=== PATIENT | male | born 1955 | race Caucasian/White ===

== ENCOUNTER 2018-03-27 18:33 | Emergency (ER) | payer OTHER ==
--- NOTE | 2018-03-27 19:47 | ED Physician Documentation ---
PD HPI LOWER EXT INJURY - Stated complaint Stated Complaint: LFT LEG PX - Chief complaint Chief Complaint: General - History obtained from History obtained from: Patient - History of Present Illness PD HPI LOW EXT INJURY LOCATION: Left, Lower leg, Thigh (posterior lateral) Type of injury: No: Fall, Twist Where injury occurred: Work Timing - onset: How many days ago (has had pain with cramping left posterolateral thigh and lateral hip. WOrse with movement and does hurt to massage the muscles. No back pain. No rash. Seen by PCP and sent to ED for U/S No calf swelling.) Timing - duration: Days (2-3) Timing - details: Gradual onset (no particular injury but does do repetitive standing and walking at work.), Still present (worsening over the past couple of days. Hurts with walking. Gets muscle cramping in hamstring area. No pain in lower leg/foot.) Improved by: Rest Worsened by: Moving, Palpating, Other (walking) Associated symptoms: No: Weakness, Numbness, Swelling Similar symptoms before: Has not had sx before Recently seen: Not recently seen Review of Systems Constitutional: denies: Fever Nose: denies: Rhinorrhea / runny nose, Congestion Throat: denies: Sore throat Respiratory: denies: Cough GI: denies: Abdominal Pain, Nausea, Vomiting : denies: Dysuria, Frequency Skin: denies: Rash Neurologic: denies: Generalized weakness, Focal weakness, Numbness PD PAST MEDICAL HISTORY - Past Medical History Cardiovascular: None Respiratory: None Neuro: None Musculoskeletal: None - Present Medications Home Medications: Ambulatory Orders Medication Instructions Recorded Confirmed Aspirin 81 mg PO 03/27/18 Finasteride 5 mg PO 03/27/18 Loratadine [Claritin] 10 mg PO 03/27/18 Methocarbamol [Robaxin] 500 mg PO Q6H PRN #20 tablet 03/27/18 Metoprolol Succinate 25 mg PO 03/27/18 Multivit with Calcium,Iron,Min 03/27/18 [Multiple Vitamins For Women] Simvastatin 40 mg PO 03/27/18 03/27/18 Tramadol HCl 50 mg PO Q6H PRN #20 tablet 03/27/18 hydroCHLOROthiazide [Hydrodiuril] 12.5 mg PO DAILY 03/27/18 03/27/18 metFORMIN [Glucophage] 500 mg PO BIDWM 03/27/18 03/27/18 - Allergies Allergies/Adverse Reactions: Allergies Allergy/AdvReac Type Severity Reaction Status Date / Time No Known Drug Allergies Allergy Verified 03/27/18 18:48 PD ED PE NORMAL - Vitals Vital signs reviewed: Yes - General General: Alert and oriented X 3, No acute distress, Well developed/nourished - Cardiac Cardiac: RRR, No murmur - Respiratory Respiratory: Clear bilaterally - Abdomen Abdomen: Soft, Non tender - Back Back: No CVA TTP, No spinal TTP - Derm Derm: Normal color, Warm and dry, No rash - Extremities Extremities: Other (left upper leg with tenderness at lateral hamstring. Some tender at greater trochanter but not along IT band. No pain with abduction against resistance. Does hurt with knee flexion against resistance. Knee without tenderness nor effusion. ) - Neuro Neuro: Alert and oriented X 3, No motor deficit, No sensory deficit, Normal speech, Other (very strong pulses at DP and posterior tibial areas. Good color and cap refill in toes. ) Results - Vitals Vitals: Oxygen O2 Source Room air - Rads (name of study) duplex U/S leg Radiology: Prelim report reviewed (no DVT. ) PD MEDICAL DECISION MAKING - ED course Complexity details: reviewed results (U/S excluded DVT. Location and character of the pain c/w hamstring injury and tendonitis. ), considered differential, d/ w patient Departure - Departure Disposition: 01 Home, Self Care Clinical Impression: Hamstring tendonitis of left thigh Condition: Stable Record reviewed to determine appropriate education?: Yes Follow-Up: Carlos Saxena DO [Primary Care Provider] - Prescriptions: Methocarbamol [Robaxin] 500 mg PO Q6H PRN #20 tablet PRN Reason: Spasms Tramadol HCl 50 mg PO Q6H PRN #20 tablet PRN Reason: Pain Comments: No signs of blood clots on the ultrasound. We will treated as muscle irritation and strain of the hamstring (tendinitis). Use some naproxen (Aleve) 2-3 tablets twice daily for the next week. Add Tylenol and/or tramadol if needed for pain. You could use Robaxin if needed for spasms. Use crutches for partial weightbearing as needed for comfort and you could also try the knee brace to reduce stress of the hamstring muscle as well. Limited standing and walking for the next 3-5 days. Recheck if not better over the next 4 5 days. Forms: Activity restrictions Discharge Date/Time: 03/27/18 22:30
[2018-03-27] MEDS: NAPROXEN 250 MG TABLET PO STA (20:14)
[2018-03-27] MEDS: traMADol 50 MG TABLET PO STA (20:14)
[2018-03-27 22:03] VITALS: BP 151/91
--- NOTE | 2018-03-27 22:10 | Ultrasound Report ---
EXAM: LEFT LOWER EXTREMITY VENOUS ULTRASOUND EXAM DATE: 03/27/2018 09:12 PM. CLINICAL HISTORY: Left leg pain with walking. COMPARISON: None. TECHNIQUE: Real-time sonographic vascular imaging was performed by the box sealing machine feeder through the lower extremity utilizing both color-flow and Doppler spectral analysis. Multiple livestock sales representative static yves ges were saved for review. FINDINGS: Common Femoral Vein (CFV): Normal. CFV-GSV Junction: Normal. Profunda Femoral Vein (PFV): Normal. Femoral Vein (FV) Prox: Normal. Femoral Vein (FV) Mid: Normal. Femoral Vein (FV) Dist: Normal. Popliteal Vein: Normal. Posterior Tibial Veins: Normal. Peroneal Veins: Normal. IMPRESSION: No evidence for deep venous thrombosis. [facility] Referring Provider Line: [phone] SITE ID: [id number]
== END 2018-03-27 22:30 | disposition home or self-care (01) ==
LOC: ED 18:33
DX: M76.9 Unspecified enthesopathy, lower limb, excluding foot (principal)
CPT/HCPCS: 99283

== ENCOUNTER 2019-01-15 12:38 | Outpatient (CLI) | payer OTHER ==
--- NOTE | 2019-01-15 16:35 | MRI Report ---
Reason: SCIATICA,UNSPECIFIED SIDE Procedure Date: 01/15/2019 Accession Number: [id number] / [id number] Procedure: MRI - Lumbar Spine W/O CPT Code: FULL RESULT: EXAM: MRI LUMBAR SPINE WITHOUT CONTRAST. EXAM DATE: 01/15/2019 01:29 PM. CLINICAL HISTORY: Sciatica, unspecified side. Low back pain for one year. Left leg numbness and pain. COMPARISON: None. TECHNIQUE: Multiplanar, multisequence T1-weighted and fluid-sensitive sequences of the lumbar spine from T12 to S1 without contrast. Other: None. FINDINGS: Spinal Canal: The conus terminates at L1-L2. The conus medullaris and cauda equina are unremarkable. Alignment: No scoliosis or spondylolisthesis. Bone Marrow: Five [id number] lumbar vertebral bodies are assumed. No gross fractures or bone lesions. No bone marrow replacement. Disk Levels/Facets: T12-L1: Unremarkable. L1-L2: T2 hypointense disk signal is seen. Minimal circumferential disk bulge. No stenosis. L2-L3: Unremarkable. Minimal circumferential disk bulge. L3-L4: Unremarkable. Minimal circumferential disk bulge. L4-L5: Unremarkable. Minimal lateral and ventral disk bulge. L5-S1: Mild loss of disk space height. T2 hypointense disk signal. Mild circumferential disk bulge. Dorsal subligamentous disk extrusion in the midline and to the left of midline. Mass effect on the underlying thecal sac is seen with moderate canal stenosis. Mass effect on descending S1 nerve roots is seen greater on the left. Left marked lateral recess stenosis. Right mild lateral recess stenosis. Mild effacement of exited L5 nerve roots, without foraminal stenosis. Musculature: Normal. No edema or fatty atrophy. Other: The partially visualized retroperitoneum is unremarkable. IMPRESSION: 1. L5-S1: Mild to moderate degenerative disk change. Circumferential disk bulge with dorsal disk extrusion is seen greater to the left of midline. Moderate canal stenosis. Right mild lateral recess stenosis. Left marked lateral recess stenosis. 2. L4-L5, L3-L4, L2-L3: Unremarkable. Minimal circumferential disk bulge. 3. L1-L2: Mild degenerative disk change. No stenosis. Comment: The following findings are so common in adults without low back pain that while we report their presence, they must be interpreted with caution and in the context of the clinical situation. (Reference Soo et al, Spine 2001) Prevalence of findings in patients without low back pain: Disk degeneration (any evidence): 92% Disk desiccation/T2 signal loss: 83% Disk height loss: 56% Disk bulge: 64% Disk protrusion: 32% Annular tear/high intensity zone: 38% [facility]
== END 2019-01-15 12:39 | disposition home or self-care (01) ==
LOC: DI 12:38
PROVIDERS: ATTEND Family Medicine
DX: M51.37 Other intervertebral disc degeneration, lumbosacral region (principal); M51.27 Other intervertebral disc displacement, lumbosacral region; M48.07 Spinal stenosis, lumbosacral region; M51.36 Other intervertebral disc degeneration, lumbar region
CPT/HCPCS: 72148

== ENCOUNTER 2024-02-05 09:01 | Outpatient (CLI) | payer MEDICARE, OTHER ==
[2024-02-05 12:03] LABS: BASOPHILS # (AUTO) 0.1 10^3/uL (0.0-0.1); BASOPHILS % (AUTO) 1.2 %; EOSINOPHILS # (AUTO) 0.3 10^3/uL (0.0-0.7); EOSINOPHILS % (AUTO) 4.3 %; HCT - HEMATOCRIT 45.2 % (42.0-52.0); HGB - HEMOGLOBIN 13.9 g/dL (14.0-18.0); LYMPHOCYTES # (AUTO) 2.3 10^3/uL (1.5-3.5); LYMPHOCYTES % (AUTO) 38.9 %; MEAN CORPUSCULAR HEMOGLOBIN 26.3 pg (27.0-31.0); MEAN CORPUSCULAR HGB CONC 30.8 g/dL (32.0-36.0); MEAN CORPUSCULAR VOLUME 85.4 fL (80.0-94.0); MEAN PLATELET VOLUME 10.1 fL (7.4-11.4); MONOCYTES # (AUTO) 0.4 10^3/uL (0.0-1.0); MONOCYTES % (AUTO) 7.2 %; NEUTROPHILS # (AUTO) 2.8 10^3/uL (1.5-6.6); NEUTROPHILS % (AUTO) 48.2 %; PLT - PLATELET COUNT 255 10^3/uL (130-450); RED BLOOD COUNT 5.29 10^6/uL (4.70-6.10); WHITE BLOOD COUNT 5.8 x10^3/uL (4.8-10.8)
[2024-02-05 12:33] LABS: THYROID STIMULATING HORMONE 1.62 uIU/mL (0.34-5.60)
[2024-02-05 12:38] LABS: ALBUMIN 4.1 g/dL (3.2-5.5); ALBUMIN/GLOBULIN RATIO 1.4 (1.0-2.2); ALKALINE PHOSPHATASE 38 IU/L (42-121); ALT ALANINE AMINOTRANSFERASE 17 IU/L (10-60); AST ASPARTATE AMINOTRANSFERASE 18 IU/L (10-42); BILIRUBIN,TOTAL 0.7 mg/dL (0.2-1.0); BUN - BLOOD UREA NITROGEN 16 mg/dL (6-20); CALCIUM 10.1 mg/dL (8.5-10.3); CARBON DIOXIDE - CO2 31 mmol/L (21-32); CHLORIDE 104 mmol/L (101-111); CHOL/HDL RATIO 2.5 (<5.0); CHOLESTEROL 122 mg/dL; CREATININE 0.9 mg/dL (0.6-1.3); GFR - MDRD 84 (>89); GLUCOSE 120 mg/dL (74-104); HDL CHOLESTEROL 48 mg/dL; LDL CHOLESTEROL,CALCULATED 60 mg/dL; LDL/HDL RATIO 1.3 (<3.6); POTASSIUM 3.7 mmol/L (3.5-4.5); SODIUM 141 mmol/L (135-145); TRIGLYCERIDES 70 mg/dL (48-352); VLDL CHOLESTEROL 14 mg/dL
[2024-02-05 12:40] LABS: ESTIMATED AVERAGE GLUCOSE 146 mg/dL (70-100); HEMOGLOBIN A1c% 6.7 % (4.27-6.07)
== END 2024-02-05 09:02 | disposition home or self-care (01) ==
LOC: LAB.N 09:01
PROVIDERS: ATTEND Family Medicine
DX: E11.59 Type 2 diabetes mellitus with other circulatory complications (principal); I10 Essential (primary) hypertension; I25.10 Atherosclerotic heart disease of native coronary artery without angina pectoris; Z12.5 Encounter for screening for malignant neoplasm of prostate
CPT/HCPCS: 36415; 80053; 80061; 82607; 82746; 83036; 84443; 85025; G0103; 83721; 84153

== ENCOUNTER 2024-02-13 13:29 | Outpatient (CLI) | payer MEDICARE, OTHER ==
--- NOTE | 2024-02-13 16:00 | CT Report ---
PROCEDURE: Lung Cancer Screen INDICATIONS: SMOKER TECHNIQUE: A CT scan of the chest was performed. Intravenous contrast media was not administered. Images were re corded and evaluated at appropriate window settings. Reformats: axial MIP of the chest, coronal and s agittal. For radiation dose reduction, the following was used: automated exposure control, adjustment of mA and/or kV according to patient size. COMPARISON: None. FINDINGS: Image quality: Excellent. Prior cancer history: Unsure. Lungs and pleura: No pleural effusions. No pneumothorax. No suspicious pulmonary nodules which requi re follow up. Linear atelectasis in the apical segment of the left lower lobe. Mediastinum: Heart size is normal. No pericardial effusion. No large vessel abnormality. No mediastin al adenopathy by size criteria. Marked three-vessel coronary calcification. Postsurgical changes of CABG. Mild calcification of the thoracic aorta and origins of the great vessels. Chest wall and lower neck: No thyroid nodule which requires sonographic follow up. No axillary or sup raclavicular adenopathy by size. Bones: No aggressive osseous abnormality. No acute fracture. Poststernotomy changes. Upper Abdomen: Mild calcification of the abdominal aorta. IMPRESSION: 1. No suspicious pulmonary nodule or consolidation. Lung RAD: 1 - Negative. Recommendation: Continue annual screening in 12 Months with LDCT 2. Marked three-vessel coronary calcification with postsurgical changes of CABG. Reviewed by: Fabio Carbtree MD on 02/13/2024 3:59 PM PDT Approved by: Fabio Crabtree MD on 02/13/2024 3:59 PM PDT Station ID: [id number]
== END 2024-02-13 13:30 | disposition home or self-care (01) ==
LOC: DI 13:29
PROVIDERS: ATTEND Family Medicine
DX: Z12.2 Encounter for screening for malignant neoplasm of respiratory organs (principal); I25.10 Atherosclerotic heart disease of native coronary artery without angina pectoris; Z95.1 Presence of aortocoronary bypass graft; F17.210 Nicotine dependence, cigarettes, uncomplicated

== ENCOUNTER 2024-02-19 08:00 | Outpatient (CLI) | payer MEDICARE, OTHER ==
[2024-02-19 17:52] LABS: FECAL OCCULT BLOOD (FIT) NEGATIVE (NEGATIVE)
== END 2024-02-19 23:59 | disposition home or self-care (01) ==
LOC: LAB.N 08:00
PROVIDERS: ATTEND Family Medicine
DX: Z12.11 Encounter for screening for malignant neoplasm of colon (principal)
CPT/HCPCS: 82274

== ENCOUNTER 2024-05-13 08:33 | Outpatient (CLI) | payer MEDICARE, OTHER ==
--- NOTE | 2024-05-13 13:19 | Ultrasound Report ---
PROCEDURE: Aorta Screening INDICATIONS: HIST OF SMOKING TECHNIQUE: Real time scanning was performed of the aorta and iliac arteries, with image documentatio n. COMPARISON: None. FINDINGS: Aorta: Proximal aortic diameter measures 2.8 x 2.7 cm. Mid-aorta measures 2.2 x 2.2 cm. Distal aor tic diameter is 2.0 x 1.9 cm. Calcified plaques are noted scattered along the length of abdominal ao rta. Iliac arteries: Right common iliac artery measures 1.2 x 1.1 cm. Left common iliac artery measures 1.1 x 1.2 cm. IMPRESSION: No evidence of abdominal aortic aneurysm. Mild atherosclerotic plaques throughout abdominal aorta. Recommended intervals for follow-up imaging of ectatic aortas and abdominal aortic aneurysms, per ACR consensus guidelines: 2.5-2.9 cm: 5 years 3.0-3.4 cm: 3 years 3.5-3.9 cm: 2 years 4.0-4.4 cm: 1 year 4.5-4.9 cm: 6 months + endovascular referral 5.0-5.5 cm: 3-6 months + endovascular referral Reviewed by: Chava Haines MD on 05/13/2024 1:17 PM PDT Approved by: Chava Haines MD on 05/13/2024 1:17 PM PDT Station ID: [id number]
== END 2024-05-13 08:34 | disposition home or self-care (01) ==
LOC: DI 08:33
PROVIDERS: ATTEND Family Medicine
DX: Z13.6 Encounter for screening for cardiovascular disorders (principal); F17.210 Nicotine dependence, cigarettes, uncomplicated

== ENCOUNTER 2024-05-27 11:20 | Outpatient (CLI) | payer MEDICARE, OTHER ==
[2024-05-27 18:10] LABS: CALCIUM 10.2 mg/dL (8.5-10.3); CREATININE 0.8 mg/dL (0.6-1.3); POTASSIUM 3.7 mmol/L (3.5-4.5)
[2024-05-27 22:55] LABS: ESTIMATED AVERAGE GLUCOSE 146 mg/dL (70-100); HEMOGLOBIN A1c% 6.7 % (4.27-6.07)
== END 2024-05-27 11:21 | disposition home or self-care (01) ==
LOC: LAB.N 11:20
PROVIDERS: ATTEND Family Medicine
DX: E11.59 Type 2 diabetes mellitus with other circulatory complications (principal); I10 Essential (primary) hypertension; I25.10 Atherosclerotic heart disease of native coronary artery without angina pectoris
CPT/HCPCS: 36415; 80048; 83036